=== PATIENT | female | born 1980 | race Caucasian/White ===

== ENCOUNTER 2024-08-24 06:25 | Day surgery (SDC) | payer BC ==
[2024-08-24] MEDS ORDERED: Morphine 2 MG/ML SYRINGE IVPUSH PRN (06:58)
[2024-08-24] MEDS ORDERED: Naloxone 0.4 MG/ML SDV IVPUSH PRN (06:58)
[2024-08-24] MEDS ORDERED: Ondansetron 4 MG/2 ML SDV IVPUSH PRN (06:58)
[2024-08-24] MEDS ORDERED: Phenylephrine HCl In 0.9% NaCl 1 MG/10 ML Syringe IVPUSH PRN (06:58)
[2024-08-24] MEDS ORDERED: Albuterol 0.083% 2.5 MG/3 ML Neb Soln NEB PRN (06:58)
[2024-08-24] MEDS ORDERED: fentaNYL 50 MCG/ML SDV IVPUSH PRN (06:58)
[2024-08-24] MEDS ORDERED: Metoclopramide 10 MG/2 ML SDV IVPUSH PRN (06:58)
[2024-08-24] MEDS ORDERED: HYDROmorphone 1 MG/ML Syringe IVPUSH PRN (06:58)
[2024-08-24] MEDS ORDERED: Scopalamine 1mg/3day Transdermal Patch ONE (07:06)
[2024-08-24] MEDS: Scopalamine 1mg/3day Transdermal Patch TOP ONE (07:15)
[2024-08-24] MEDS: Lactated Ringers 1,000 ML IV SCH (07:16)
[2024-08-24] MEDS ORDERED: Ondansetron 4 MG/2 ML SDV ONE (07:35)
[2024-08-24] MEDS ORDERED: fentaNYL 100 MCG/2 ML SDV ONE (07:35)
[2024-08-24] MEDS ORDERED: Dexamethasone 4 MG/ML 5 ML MDV ONE (07:35)
[2024-08-24] MEDS ORDERED: Propofol 200 MG/20 ML SDV ONE (07:35)
[2024-08-24] MEDS ORDERED: Midazolam 1 MG/ML 2 ML SDV ONE (07:35)
[2024-08-24] MEDS ORDERED: Lidocaine 1% 5 ML VIAL ONE (07:35)
[2024-08-24] MEDS ORDERED: Ketorolac 30 MG/ML SDV ONE (07:59)
[2024-08-24] MEDS ORDERED: ePHEDrine 50 MG/ML SDV ONE (08:02)
[2024-08-24] MEDS ORDERED: Sodium Chloride 0.9% 20 ML SDV IV PRN (08:38)
[2024-08-24] MEDS ORDERED: Sodium Chloride 0.9% 2.5 ML Syringe FLUSH PRN (08:38)
[2024-08-24] MEDS ORDERED: Sodium Chloride 0.9% 10 ML Syringe FLUSH PRN (08:38)
== END 2024-08-24 10:00 | disposition home or self-care (01) ==
LOC: MW.SDS 06:25 → MERGE 08:00 → MW.SDS 10:00
PROVIDERS: ATTEND Obstetrics & Gynecology
DX: N93.9 Abnormal uterine and vaginal bleeding, unspecified (principal); F17.210 Nicotine dependence, cigarettes, uncomplicated
CPT/HCPCS: 58563; A9270; C1729; J0131; J1100; J1885; J2003; J2250; J2405; J2704; J3010; J7120; 00952; J3490